=== PATIENT | female | born 1945 | race Caucasian/White ===

== ENCOUNTER 2016-08-03 14:52 | Emergency (ER) | payer OTHER ==
[~2016-08-03] VITALS: Ht 162.6 cm; Wt 69.0 kg
[~2016-08-03 14:52] MED LIST: ATOR20TA PO; Aspirin PO; Benazepril Hcl PO; Famotidine PO; Fluoxetine Hcl PO; LORA0.5T2 PO; Metoprolol Tartrate PO; Vitamin B Comp W-C PO
[2016-08-03] MEDS ORDERED: IBUPROFEN 600MG TABLET PO ONE (18:45)
[2016-08-03 18:59] VITALS: BP 123/70
== END 2016-08-03 19:38 | disposition home or self-care (01) ==
LOC: ER 14:52
DX: M79.641 Pain in right hand (principal); E78.00 Pure hypercholesterolemia, unspecified; I51.9 Heart disease, unspecified; Z95.1 Presence of aortocoronary bypass graft; W01.0XXA Fall on same level from slipping, tripping and stumbling without subsequent striking against object, initial encounter; Y93.89 Activity, other specified; Y92.018 Other place in single-family (private) house as the place of occurrence of the external cause
CPT/HCPCS: 73110; 73130; 99284

== ENCOUNTER 2021-03-01 10:23 | Emergency (ER) | payer OTHER ==
[~2021-03-01] VITALS: Ht 167.6 cm; Wt 56.0 kg
[2021-03-01] MEDS ORDERED: ACETAMINOPHEN 325MG TABLET PO ONE (11:30)
[2021-03-01] MEDS ORDERED: ALBU6.7H9 INH (14:23)
[2021-03-01 14:32] VITALS: BP 120/68
== END 2021-03-01 15:11 | disposition home or self-care (01) ==
LOC: ER 11:49
DX: M79.18 Myalgia, other site (principal); R05.9 Cough, unspecified; R06.02 Shortness of breath; Z20.822 Contact with and (suspected) exposure to COVID-19; E78.00 Pure hypercholesterolemia, unspecified; Z79.899 Other long term (current) drug therapy
CPT/HCPCS: 71045; 99284; C9803; U0003; U0005

== ENCOUNTER 2021-04-01 18:52 | Emergency (ER) | payer OTHER ==
[~2021-04-01] VITALS: Ht 165.1 cm; Wt 51.0 kg
[~2021-04-01 18:52] MED LIST changes: +ALBU6.7H9 INH
[2021-04-01] MEDS ORDERED: LORAZEPAM 2MG/ML CPJ IV STA (19:49)
[2021-04-01] MEDS ORDERED: SODIUM CHLORIDE 0.9% 1,000 ML IV ONE (20:00)
[2021-04-01 20:45] LABS: BASOPHILS % 0.4 % (0.0-2.0); EOSINOPHILS % 0.7 % (0.0-5.0); HEMATOCRIT. 40.5 % (36.0-48.0); HEMOGLOBIN. 13.5 g/dL (12.0-16.0); LYMPHOCYTES % 21.1 % (20.0-50.0); MEAN CORPUSCULAR VOLUME 89.8 fL (81.0-99.0); MEAN PLATELET VOLUME 8.3 fl (7.4-10.4); MONOCYTES % 7.3 % (2.0-8.0); NEUTROPHILS % 70.5 % (40.0-76.0); PLATELET 224 x1000/uL (130-400); RED BLOOD CELL COUNT 4.51 mill/uL (4.2-5.4)
[2021-04-01 20:51] LABS: CHLORIDE 102 mEq/L (98-107)
[2021-04-01 20:59] LABS: ETHANOL BLOOD < 10 mg/dL
[2021-04-02 01:00] VITALS: BP 158/73
== END 2021-04-02 01:18 | disposition short-term general hospital (02) ==
LOC: ER 18:52
DX: R41.82 Altered mental status, unspecified (principal); R53.1 Weakness; R53.83 Other fatigue; F32.A Depression, unspecified; I25.10 Atherosclerotic heart disease of native coronary artery without angina pectoris; Z95.1 Presence of aortocoronary bypass graft; Z95.0 Presence of cardiac pacemaker
CPT/HCPCS: 36415; 70450; 71045; 80053; 80307; 80320; 80329; 84443; 84484; 85025; 96361; 96374; 99285; J7030; G0480

== ENCOUNTER 2022-04-22 18:10 | Emergency (ER) | payer OTHER ==
[~2022-04-22] VITALS: Ht 152.4 cm; Wt 75.0 kg
[~2022-04-22 18:10] MED LIST changes: +ALBU6.7H3 INH; -ALBU6.7H9 INH
[2022-04-23] MEDS ORDERED: ACETAMINOPHEN 325MG TABLET PO STA (02:33)
[2022-04-23 03:08] LABS: HEMATOCRIT. 41.5 % (36.0-48.0); HEMOGLOBIN. 13.9 g/dL (12.0-16.0); LYMPHOCYTES % 36.1 % (20.0-50.0); MEAN CORPUSCULAR HEMOGLOBIN 31.2 pg (28.0-32.0); MEAN CORPUSCULAR VOLUME 92.8 fL (81.0-99.0); MEAN PLATELET VOLUME 8.3 fl (7.4-10.4); MONOCYTES % 10.1 % (2.0-8.0); NEUTROPHILS % 48.8 % (40.0-76.0); PLATELET 303 x1000/uL (130-400); RED BLOOD CELL COUNT 4.47 mill/uL (4.2-5.4); RED CELL DISTRIBUTION WIDTH 13.6 % (11.6-14.6)
[2022-04-23 03:14] LABS: INR 1.1; PROTHROMBIN TIME 11.4 sec (9.6-11.0)
[2022-04-23 04:24] LABS: CHLORIDE 111 mEq/L (98-107)
[2022-04-23 06:22] VITALS: BP 155/60
== END 2022-04-23 06:24 | disposition home or self-care (01) ==
LOC: ER 18:10
DX: I10 Essential (primary) hypertension (principal); E78.00 Pure hypercholesterolemia, unspecified; Z79.82 Long term (current) use of aspirin
CPT/HCPCS: 36415; 71045; 80053; 83880; 84484; 85025; 86850; 86900; 99285